=== PATIENT | female | born 1950 | race Caucasian/White ===

== ENCOUNTER 2016-12-24 19:21 | Emergency (ER) | payer OTHER ==
[2016-12-24 19:27] VITALS: BMI 25.4
--- NOTE | 2016-12-24 20:06 | DR.BITE ---
HPI - Time Seen Time seen: 19:44 - PCP Primary Care Physician: manjinder - Complaint/Symptoms Chief Complaint Doctor Comments: History as stated. Patient is taking augmentin 875mg this is day six. Patient presents for evaluation of dog bites on bilateral lower extremities. The dog is apprehended and caged by authorities. Chief Complaint:: dog bite to right lower leg and left lower leg happened on thursday. redness, edema. been to [facility] and has followed up with . on amoxicillin. - Source History Provided: Patient - Mode of Arrival Mode of Arrival: Ambulatory - Timing Onset of Chief Complaint: 12/19/16 - Context Immunization Status of Animal: Not Current PMH - PMH Past Medical History: Yes Past Medical History: Anxiety, Depression, Dyslipidemia, Hypertension, PUD Past Surgical History: Yes Surgical History: Hysterectomy - Family History History of Family Medical Conditions: Yes Family Medical History: Diabetes Mellitus, Cancer, Coronary Artery Disease, Hypertension - Social History Does patient currently use any type of tobacco product: No Have you used tobacco products in the last 12 months: No Type of Tobacco Use: None Does any household member use tobacco: No Alcohol Use: None Do you use any recreational Drugs:: No Lives With: Family Lives Where: Home - infectious screening Have you traveled outside the country in the last 6 months?: No Isolation: Standard ROS - Review of Systems Eyes: No Symptoms Reported ENTM: No Symptoms Reported Respiratoy: No Symptoms Reported Cardiovascular: No Symptoms Reported Gastrointestinal/Abdominal: No Symptoms Reported Genitourinary: No Symptoms Reported Neurological: No Symptoms Reported Musculoskeletal: No Symptoms Reported Integumentary: No Symptoms Reported, Other (Bilateral lower extremities distally with multiple healing dog bites) Hematologic/Lymphatic: No Symptoms Reported Endocrine: No Symptoms Reported Psychiatric: No Symptoms Reported All Other Systems: Reviewed and Negative PE - Vital Signs Vital Signs: Temp Pulse Resp BP BP Pulse Ox 12/24/16 20:14 98.2 F 12/24/16 19:22 87 16 146/75 100 03/21/16 15:39 157/69 157/69 - Constitutional Limitations: No Limitations General Appearance: Alert, In No Apparent Distress - Head Head Exam: Normal Inspection, Atraumatic - Eyes Eye exam: Normal Appearance, PERRL, EOMI - ENT ENT Exam: Normal Exam - Neck Neck Exam: Normal Inspection - Chest Chest Inspection: Normal Inspection - Respiratory Respiratory Exam: Normal Lung Sounds Bilat Respiratory Exam: Bilateral Clear to Auscultation - Cardiovascular Cardiovascular Exam: Regular Rate, Normal Rhythm - Abdominal Exam Abdominal Exam: Normal Inspection, Normal Bowel Sounds Abdominal Tenderness: negative: RUQ, RLQ, LUQ, LLQ, Epigastrium, Suprapubic, Diffuse, Mild, Moderate, Severe, Other - Back Back Exam: Normal Inspection, Full ROM - Neurologic Neurological Exam: Alert, Oriented X3, CN II-XII Intact Cranial Nerve Exam: EOM Function (II, III, IV, ): Normal Cerebellar Function: Normal Gait - Psychiatric Psychiatric Exam: Normal Affect, Normal Mood - Skin Skin Exam: Other (multiple dog bites on bilateral lower extremities, not warm to tough healing, minimal ecchymosis ) ROR - Labs Reviewed Result Diagrams: 12/24/16 20:20 Laboratory: WBC 8.6 X10^3/uL (3.6-10.0) 12/24/16 20:20 RBC 3.60 X10^6/uL (3.5-5.4) 12/24/16 20:20 Hgb 11.3 g/dL (12.0-16.0) L 12/24/16 20:20 Hct 32.7 % (36.0-47.0) L 12/24/16 20:20 MCV 90.6 fL (80.0-100.0) 12/24/16 20:20 MCH 31.4 pg (27.0-34.0) 12/24/16 20:20 MCHC 34.6 g/dL (33.0-35.0) 12/24/16 20:20 RDW 12.7 % (11.6-16.5) 12/24/16 20:20 Plt Count 231 X10^3/uL (150.0-450.0) 12/24/16 20:20 MPV 9.0 fL (7.4-11.0) 12/24/16 20:20 Neut % 60.7 % (42.0-75.0) 12/24/16 20:20 Lymph % 26.6 % (21.0-51.0) 12/24/16 20:20 [place] % 8.7 % (0.0-13.0) 12/24/16 20:20 Eos % 3.4 % (0.9-2.9) H 12/24/16 20:20 Baso % 0.6 % (0.2-1.0) 12/24/16 20:20 Neut # 5.2 x10^3/uL (2.2-4.8) H 12/24/16 20:20 Lymph # 2.3 X10^3/uL (1.3-2.9) 12/24/16 20:20 [place] # 0.7 x10^3/uL (0.3-0.8) 12/24/16 20:20 Eos # 0.3 x10^3/uL (0.0-0.2) H 12/24/16 20:20 Baso # 0.1 X10^3/uL (0.0-0.1) 12/24/16 20:20 Absolute Nucleated RBC 0.0 /100WBC 12/24/16 20:20 - Diagnosis Discharge Problem: Dog bite of multiple sites of lower extremity Qualifiers: Encounter type: initial encounter Laterality: right Qualified Code(s): S81.851A - Open bite, right lower leg, initial encounter; W54.0XXA - Bitten by dog, initial encounter; W54.0XXA - Bitten by dog, initial encounter - Discharge Plan Condition: Stable - Follow ups/Referrals Follow ups/Referrals: NFD,None [Primary Care Provider] - 3 days - Instructions
[2016-12-24 20:28] LABS: BASOPHILS # (AUTO) 0.1 X10^3/uL (0.0-0.1); BASOPHILS % (AUTO) 0.6 % (0.2-1.0); EOSINOPHILS # (AUTO) 0.3 x10^3/uL (0.0-0.2); EOSINOPHILS % (AUTO) 3.4 % (0.9-2.9); HEMATOCRIT 32.7 % (36.0-47.0); HEMOGLOBIN 11.3 g/dL (12.0-16.0); LYMPHOCYTES # (AUTO) 2.3 X10^3/uL (1.3-2.9); LYMPHOCYTES % (AUTO) 26.6 % (21.0-51.0); MEAN CORPUSCULAR HEMOGLOBIN 31.4 pg (27.0-34.0); MEAN CORPUSCULAR HGB CONC 34.6 g/dL (33.0-35.0); MEAN CORPUSCULAR VOLUME 90.6 fL (80.0-100.0); MONOCYTES # (AUTO) 0.7 x10^3/uL (0.3-0.8); MONOCYTES % (AUTO) 8.7 % (0.0-13.0); NEUTROPHILS # (AUTO) 5.2 x10^3/uL (2.2-4.8); NEUTROPHILS % (AUTO) 60.7 % (42.0-75.0); PLATELET COUNT 231 X10^3/uL (150.0-450.0); RED CELL DISTRIBUTION WIDTH 12.7 % (11.6-16.5); WHITE BLOOD COUNT 8.6 X10^3/uL (3.6-10.0)
[2016-12-24 21:35] VITALS: BP 144/71
== END 2016-12-24 21:30 | disposition home or self-care (01) ==
LOC: ER 19:34
DX: S81.851A Open bite, right lower leg, initial encounter (principal); W54.0XXA Bitten by dog, initial encounter
CPT/HCPCS: 36415; 85025; 86140; 99282

== ENCOUNTER 2018-06-08 15:53 | Inpatient (IN) ==
[2018-06-08 15:59] VITALS: BMI 24.6
[2018-06-08 16:31] LABS: BASOPHILS % (AUTO) 0.1 % (0.2-1.0); EOSINOPHILS # (AUTO) 0.1 x10^3/uL (0.0-0.2); EOSINOPHILS % (AUTO) 0.5 % (0.9-2.9); HEMATOCRIT 21.1 % (36.0-47.0); HEMOGLOBIN 7.2 g/dL (12.0-16.0); LYMPHOCYTES # (AUTO) 4.6 X10^3/uL (1.3-2.9); LYMPHOCYTES % (AUTO) 31.1 % (21.0-51.0); MEAN CORPUSCULAR HEMOGLOBIN 33.5 pg (27.0-34.0); MEAN CORPUSCULAR HGB CONC 34.1 g/dL (33.0-35.0); MEAN CORPUSCULAR VOLUME 98.1 fL (80.0-100.0); MEAN PLATELET VOLUME 8.2 fL (7.4-11.0); MONOCYTES % (AUTO) 6.6 % (0.0-13.0); NEUTROPHILS % (AUTO) 61.7 % (42.0-75.0); PLATELET COUNT 374 X10^3/uL (150.0-450.0); RED BLOOD COUNT 2.16 X10^6/uL (3.5-5.4); RED CELL DISTRIBUTION WIDTH 17.1 % (11.6-16.5); WHITE BLOOD COUNT 14.6 X10^3/uL (3.6-10.0)
[2018-06-08 16:38] LABS: PLATELET MORPHOLOGY COMMENT NORMAL (NORMAL)
[2018-06-08 16:40] LABS: ANISOCYTOSIS SLIGHT
[2018-06-08 16:43] LABS: SALICYLATE < 2.8 mg/dL (2.8-20)
[2018-06-08 16:45] LABS: ALANINE AMINOTRANSFERASE 19 Units/L (12-78); ALBUMIN 3.3 g/dL (3.4-5.0); ALKALINE PHOSPHATASE 59 Units/L (46-116); ASPARTATE AMINO TRANSFERASE 11 Units/L (15-37); BLOOD ALCOHOL < 3 mg/dL (0-19.9); BLOOD UREA NITROGEN 25 mg/dL (7-18); CALCIUM 8.6 mg/dL (8.5-10.1); CARBON DIOXIDE 27.8 mmol/L (21-32); CHLORIDE 105 mmol/L (98-107); COR CA(FOR HYPOALB) 9.2 mg/dL (8.5-10.1); COR NA(FOR HYPERGLY) 143 mmol/L (136-145); CREATININE 1.44 mg/dL (0.55-1.02); SODIUM 142 mmol/L (136-145); TOTAL PROTEIN 6.6 g/dL (6.4-8.2); eGFR NON BLACK RACES 38 (>60)
--- NOTE | 2018-06-08 16:51 | DR.GENAD ---
HPI Time Seen Time Seen by Provider: 06/08/18 16:49 PCP Primary Care Physician: MAGDALENE HPI Comment HPI Comment: 68 YR OLD WHITE FEMALE IN ED FOR MEDICAL CLEARANCE. PATIENT IS DEPRESS AND DAUGHTER THINK IS GETTING WORSE. DENIES SUICIDAL OR HOMICIDAL ROSA ATION. Complaint/Symptoms Chief Complaint Doctors Comments: MEDICAL CLEARANCE. Chief Complaint:: PATIENT STATED THAT SHE HAS BEEN REALLY SICK AND NOT GETTING ANY BETTER AND NEEDS TO BE [facility] THE [facility] [place]. PATIENT NEEDS MEDICAL CLEARNACE. Nurses notes reviewed Nurses Notes Review: Yes Source History Provided: Patient Mode of Arrival Mode of Arrival: Ambulatory Timing Onset of Chief Complaint: 06/07/18 Came on: Gradually Duration Duration: Constant Duration: Weeks Severity Severity: Moderate Other History Other History: DEPRESSION PMH PMH Past Medical History: Yes Past Medical History: Anxiety, Depression, Dyslipidemia, Hypertension and PUD Past Surgical History: Yes Surgical History: Hysterectomy Family History History of Family Medical Conditions: Yes Family Medical History: Diabetes Mellitus, Cancer, Coronary Artery Disease and Hypertension Social History Does patient currently use any type of tobacco product: No Have you used tobacco products in the last 12 months: No Type of Tobacco Use: None Does any household member use tobacco: No Alcohol Use: None Do you use any recreational Drugs:: No Lives With: Alone Lives Where: Home infectious screening In the last 2 months have you had wt loss of >10#?: NO Have you had fever, night sweats or hemotysis?: No Have you traveled outside the country in the last 6 months?: No Isolation: Standard ROS Review of Systems Constitutional: No Symptoms Reported Eyes: No Symptoms Reported ENTM: No Symptoms Reported Respiratoy: No Symptoms Reported Cardiovascular: No Symptoms Reported Gastrointestinal/Abdominal: No Symptoms Reported Genitourinary: No Symptoms Reported Neurological: No Symptoms Reported Musculoskeletal: No Symptoms Reported Integumentary: No Symptoms Reported Hematologic/Lymphatic: No Symptoms Reported Endocrine: No Symptoms Reported Psychiatric: No Symptoms Reported and Depression All Other Systems: Reviewed and Negative PE Vital Signs Vitals: Temperature 98.4 F Pulse Rate [Right Brachial] 88 Pulse Rate 106 Respiratory Rate 20 Blood Pressure [Right Arm] 138/67 Blood Pressure [Left Arm] 157/69 Blood Pressure 129/58 O2 Sat by Pulse Oximetry 98 General Limitations: No Limitations General Appearance: Alert and In No Apparent Distress Head Head Exam: Normal Inspection Eyes Eye exam: Normal Appearance ENT ENT Exam: Normal Exam External Ear Exam: Normal External Inspection TM/Canal Exam: Bilateral: Normal Nose Exam: Normal Nose Exam Mouth Exam: Normal Inspection Throat Exam: Normal Inspection Neck Neck Exam: Normal Inspection Chest Chest Inspection: Normal Inspection Respiratory Respiratory Exam: Normal Lung Sounds Bilat Respiratory Exam: Bilateral: Clear to Auscultation Cardiovascular Cardiovascular Exam: Regular Rate and Normal Rhythm Abdominal Exam Abdominal Exam: Normal Inspection, Normal Bowel Sounds and Soft Extremities Extremities Exam: Normal Inspection Back Back Exam: Normal Inspection Neurologic Neurological Exam: Alert, Oriented X3 and CN II-XII Intact; negative Motor Sensory Deficit Psychiatric Psychiatric Exam: Normal Affect and Normal Mood Skin Skin Exam: Warm, Dry, Intact and Normal Color MDM Additional Information Additional Information Obtained From: Family and PCP Differential Diagnosis Differential Diagnosis: DEPRESSION. COURSE Treatment Treatment: SEE ORDERS. Consultation Consultation Comments: PATIENT IS MEDICALY CLEAR. Education/Counseling Education/Counseling: Patient and Family Educated On: Diagnosis and Needs for Follow Up ROR Labs Reviewed Laboratory Results Reviewed?: Yes Result Diagrams: 06/09/18 05:41 06/09/18 05:41 Laboratory: WBC 12.0 X10^3/uL (3.6-10.0) H 06/09/18 05:41 RBC 2.09 X10^6/uL (3.5-5.4) L 06/09/18 05:41 Hgb 6.9 g/dL (12.0-16.0) L* 06/09/18 05:41 Hct 21.0 % (36.0-47.0) L 06/09/18 05:41 MCV 100.2 fL (80.0-100.0) H 06/09/18 05:41 MCH 32.9 pg (27.0-34.0) 06/09/18 05:41 MCHC 32.8 g/dL (33.0-35.0) L 06/09/18 05:41 RDW 16.3 % (11.6-16.5) 06/09/18 05:41 Plt Count 334 X10^3/uL (150.0-450.0) 06/09/18 05:41 Plt Count Comment Adequate (ADEQUATE) 06/08/18 16:22 MPV 8.9 fL (7.4-11.0) 06/09/18 05:41 Neut % (Auto) 68.3 % (42.0-75.0) 06/09/18 05:41 Lymph % (Auto) 26.6 % (21.0-51.0) 06/09/18 05:41 [place] % (Auto) 5.0 % (0.0-13.0) 06/09/18 05:41 Eos % (Auto) 0.0 % (0.9-2.9) L 06/09/18 05:41 Baso % (Auto) 0.1 % (0.2-1.0) L 06/09/18 05:41 Neut # (Auto) 8.2 x10^3/uL (2.2-4.8) H 06/09/18 05:41 Lymph # (Auto) 3.2 X10^3/uL (1.3-2.9) H 06/09/18 05:41 [place] # (Auto) 0.6 x10^3/uL (0.3-0.8) 06/09/18 05:41 Eos # (Auto) 0.0 x10^3/uL (0.0-0.2) 06/09/18 05:41 Baso # (Auto) 0.0 X10^3/uL (0.0-0.1) 06/09/18 05:41 Absolute Nucleated RBC 0.0 /100WBC 06/09/18 05:41 Plt Morphology Comment Normal (NORMAL) 06/08/18 16:22 RBC Morphology Abnormal (NORMAL) A 06/08/18 16:22 Anisocytosis Slight A 06/08/18 16:22 Sodium 139 mmol/L (136-145) 06/09/18 05:41 Corrected Sodium 140 mmol/L (136-145) 06/09/18 05:41 Potassium 4.4 mmol/L (3.5-5.1) 06/09/18 05:41 Chloride 105 mmol/L (98-107) 06/09/18 05:41 Carbon Dioxide 24.0 mmol/L (21-32) 06/09/18 05:41 BUN 23 mg/dL (7-18) H 06/09/18 05:41 Creatinine 1.10 mg/dL (0.55-1.02) H 06/09/18 05:41 Est GFR (MDRD) Af Amer > 60 (>60) 06/09/18 05:41 Est GFR (MDRD) Non-Af 52 (>60) L 06/09/18 05:41 Glucose 131 mg/dL (65-99) H 06/09/18 05:41 Calcium 8.9 mg/dL (8.5-10.1) 06/09/18 05:41 Corrected Calcium 9.5 mg/dL (8.5-10.1) 06/09/18 05:41 Iron 26 ug/dL (50-175) L 06/08/18 16:22 Transferrin 258 mg/dL (202-364) 06/08/18 16:22 Ferritin 77 ng/mL (8-252) 06/08/18 16:22 Total Bilirubin 0.20 mg/dL (0.2-1.0) 06/09/18 05:41 AST 11 Units/L (15-37) L 06/09/18 05:41 ALT 19 Units/L (12-78) 06/09/18 05:41 Alkaline Phosphatase 54 Units/L (46-116) 06/09/18 05:41 Total Protein 6.5 g/dL (6.4-8.2) 06/09/18 05:41 Albumin 3.3 g/dL (3.4-5.0) L 06/09/18 05:41 Globulin 3.2 g/dL (2.5-4.5) 06/09/18 05:41 Albumin/Globulin Ratio 1.0 Ratio (1.1-2.1) L 06/09/18 05:41 Vitamin B12 349 pg/mL (193-986) 06/08/18 16:22 Folate 12.1 ng/mL (>8.6) 06/08/18 16:22 Specimen Type Clean catch urine 06/08/18 16:10 Urine Color Yellow (YELLOW) 06/08/18 16:10 Urine Appearance Clear (CLEAR) 06/08/18 16:10 Urine pH 5.0 (5.0 - 8.0) 06/08/18 16:10 Ur Specific [place] 1.010 (1.000-1.030) 06/08/18 16:10 Urine Protein 1+ (NEGATIVE) 06/08/18 16:10 Urine Glucose (UA) Negative (NEGATIVE) 06/08/18 16:10 Urine Ketones Negative (NEGATIVE) 06/08/18 16:10 Urine Occult Blood Negative (NEGATIVE) 06/08/18 16:10 Urine Nitrite Negative (NEGATIVE) 06/08/18 16:10 Urine Bilirubin Negative (NEGATIVE) 06/08/18 16:10 Urine Urobilinogen Normal (NORMAL) 06/08/18 16:10 Ur Leukocyte Esterase 1+ (NEGATIVE) 06/08/18 16:10 Urine RBC 0-2 /HPF (NONE SEEN) 06/08/18 16:10 Urine WBC 0-2 /HPF (NONE SEEN) 06/08/18 16:10 Ur Squamous Epith Cells Few /HPF (NEGATIVE) 06/08/18 16:10 Urine Bacteria Trace /HPF (NEGATIVE) 06/08/18 16:10 Ur Culture Indicated? No/not indicated 06/08/18 16:10 Salicylates < 2.8 mg/dL (2.8-20) L 06/08/18 16:22 Urine Opiates Screen Negative (NEG=<300) 06/08/18 16:10 Urine Methadone Screen Negative (NEG=<300) 06/08/18 16:10 Acetaminophen 0.0 ug/mL (10-30) L 06/08/18 16:22 Ur Barbiturates Screen Negative (NEG=<200) 06/08/18 16:10 Ur Phencyclidine Scrn Negative (NEG=<25) 06/08/18 16:10 Ur Amphetamines Screen Negative (NEG=<1000) 06/08/18 16:10 U Benzodiazepines Scrn Positive (NEG=<200) A 06/08/18 16:10 Urine Cocaine Screen Negative (NEG=<300) 06/08/18 16:10 U Marijuana (THC) Screen Negative (NEG=<50) 06/08/18 16:10 Ethyl Alcohol mg/dL < 3 mg/dL (0-19.9) 06/08/18 16:22 EKG Rate: 103 [place]: Normal Rhythm: ST Block: None Hypertrophy: LVH ST: Nonsp Diagnosis Discharge Problem: Anemia Qualifiers: Anemia type: unspecified type Qualified Code(s): D64.9 - Anemia, unspecified Depression Qualifiers: Depression Type: unspecified Qualified Code(s): F32.9 - Major depressive disord er, single episode, unspecified Instructions Instructions: Major Depressive Disorder, Adult
[2018-06-08 17:10] LABS: BILIRUBIN,URINE NEGATIVE (NEGATIVE); BLOOD/HEMOGLOBIN,URINE NEGATIVE (NEGATIVE); GLUCOSE, URINE NEGATIVE (NEGATIVE); KETONES,URINE NEGATIVE (NEGATIVE); LEUKOCYTE ESTERASE ,URINE 1+ (NEGATIVE); NITRITES,URINE NEGATIVE (NEGATIVE); PROTEIN,URINE 1+ (NEGATIVE); UROBILINOGEN,URINE NORMAL (NORMAL)
[2018-06-08 17:12] LABS: APPEARANCE,URINE CLEAR (CLEAR); COLOR,URINE YELLOW (YELLOW)
[2018-06-08 17:21] LABS: BACTERIA,URINE TRACE /HPF (NEGATIVE); RBC,URINE 0-2 /HPF (NONE SEEN); SQUAMOUS EPITHELIAL CELL,UR FEW /HPF (NEGATIVE)
[2018-06-08] MEDS: XANAX PO PRN (22:30)
[2018-06-09 06:55] LABS: ALANINE AMINOTRANSFERASE 19 Units/L (12-78); ALBUMIN 3.3 g/dL (3.4-5.0); ALKALINE PHOSPHATASE 54 Units/L (46-116); ASPARTATE AMINO TRANSFERASE 11 Units/L (15-37); BLOOD UREA NITROGEN 23 mg/dL (7-18); CALCIUM 8.9 mg/dL (8.5-10.1); CHLORIDE 105 mmol/L (98-107); COR CA(FOR HYPOALB) 9.5 mg/dL (8.5-10.1); COR NA(FOR HYPERGLY) 140 mmol/L (136-145); SODIUM 139 mmol/L (136-145); TOTAL PROTEIN 6.5 g/dL (6.4-8.2); eGFR NON BLACK RACES 52 (>60)
[2018-06-09 07:03] LABS: BASOPHILS % (AUTO) 0.1 % (0.2-1.0); LYMPHOCYTES # (AUTO) 3.2 X10^3/uL (1.3-2.9); LYMPHOCYTES % (AUTO) 26.6 % (21.0-51.0); MEAN CORPUSCULAR HEMOGLOBIN 32.9 pg (27.0-34.0); MEAN CORPUSCULAR HGB CONC 32.8 g/dL (33.0-35.0); MEAN CORPUSCULAR VOLUME 100.2 fL (80.0-100.0); MEAN PLATELET VOLUME 8.9 fL (7.4-11.0); MONOCYTES # (AUTO) 0.6 x10^3/uL (0.3-0.8); NEUTROPHILS # (AUTO) 8.2 x10^3/uL (2.2-4.8); NEUTROPHILS % (AUTO) 68.3 % (42.0-75.0); PLATELET COUNT 334 X10^3/uL (150.0-450.0); RED BLOOD COUNT 2.09 X10^6/uL (3.5-5.4); RED CELL DISTRIBUTION WIDTH 16.3 % (11.6-16.5)
[2018-06-09 07:10] LABS: HEMOGLOBIN 6.9 g/dL (12.0-16.0)
[2018-06-09] MEDS: XANAX PO PRN ×2 (08:50→21:00)
[2018-06-09] MEDS ORDERED: ROBITUSSIN DM PO PRN (12:01)
--- NOTE | 2018-06-09 12:35 | DR.H&P ---
H&P - History & Physical for Day of: H&P Date: 06/08/18 - Chief Complaint Chief Complaint: DEPRESSION, WEAKNESS, FATIGUE - History of Present Illness History of Present Illness: IS A 68 YEAR OLD PATIENT OF OURS WHO PRESENTED TO THE ER SEEKING MEDICAL CLEARANCE FOR PLACEMENT AT A BEHAVIORAL UNIT DUE TO DEPRESSION. SHE DENIES SUICIDAL OR HOMICIDAL IDEATION. SHE DOES REPORT WEAKNESS AND FATIGUE. ON ARRIVAL, VITALS WERE 97.8-81-18-98%-154/72. LABS WERE OBTAINED. ABNORMAL LAB VALUES INCLUDE THE FOLLOWING: WBC 14.6, RBC 2.16, HGB 7.2, HCT 21.1, BUN 25, CREATININE 1.44, GLUCOSE 154, IRON 26, AST 11, ALBUMIN 3.3. TOXICOLOGY REPORTS POSITIVE FOR BENZODIAZEPINES. EKG REVEALED SINUS TACHYCARDIA WITH HR 103. WHEN QUESTIONED ABOUT HER BOWEL PATTERS, SHE DOES REPORT DARK, TARRY STOOL AND DARK COLORED EMESIS. SHE WAS ADMITTED FOR FURTHER EVAULATION AND TREATMENT OF ANEMIA AND DEPRESSION. WE WILL FOLLOW UP WITH AM LABS AND CONTINUE TO MONITOR. IF HEMOGLOBIN FALLS BELOW 7, WE PLAN TO TRANSFUSE PRBC. - Past Medical History Past Medical History: Hypertension, Dyslipidemia, Depression, Anxiety, PUD - Past Surgical History Surgical History: Hysterectomy - Family History Family Medical History: Diabetes Mellitus, Cancer, Coronary Artery Disease, Hypertension - Social History Does patient currently use any type of tobacco product: No Have you used tobacco products in the last 12 months: No Type of Tobacco Use: None Does any household member use tobacco: No Alcohol Use: None Drug Use: None - Medications Home Medications: doxycycline Allergy (Verified 12/24/16 19:29) CONTINUE taking the following medications amoxicillin-pot clavulanate 875 mg PO BID 06/09/18 [History] cefdinir 300 mg PO BID 06/09/18 [History] eszopiclone 2 mg PO HS 06/09/18 [History] fluticasone propionate 1 spray INTRANASAL BID 06/09/18 [History] gabapentin 2 cap PO QID 06/09/18 [History] meclizine 25 mg PO TID PRN 06/09/18 [History] meloxicam 15 mg PO DAILY 06/09/18 [History] ondansetron HCl 8 mg PO Q8H PRN 06/09/18 [History] prednisone 10 mg PO DIRECTED 06/09/18 [History] - Review of Systems Constitutional: Weakness, Malaise Eyes: No Symptoms Reported ENT: No Symptoms Reported Respiratory: Shortness of Breath Cardiovascular: No Symptoms Reported Gastrointestinal: No Symptoms Reported Genitourinary: No Symptoms Reported Musculoskeletal: No Symptoms Reported Skin: No Symptoms Reported Neurological: Weakness - Physical Exam Vital Signs: Temperature 97.8 F Pulse Rate [Right Brachial] 81 Pulse Rate 106 Respiratory Rate 18 Blood Pressure [Right Arm] 154/72 Blood Pressure [Left Arm] 157/69 Blood Pressure 129/58 O2 Sat by Pulse Oximetry 98 Oriented: Normal Eyes: Normal Ear: Normal Nose: Normal Throat: Normal Respiratory: Diminished Throughout Cardiovascular: Normal : Normal Auscultation: Bowel Sounds: Normal Palpation: Normal Tenderness: Normal Skin: Normal Musculoskeletal: Normal Psychiatric: Normal Mood Description: Calm Affect: Normal Speech Pattern: Clear - Assessment/Plan (1) Anemia Qualifiers: Anemia type: unspecified type Qualified Code(s): D64.9 - Anemia, unspecified Status: Acute Plan: MONITOR H&H, TRANSFUSE 2 UNITS PRBC IF HGB FALLS BELOW 7 (2) Depression Qualifiers: Depression Type: unspecified Qualified Code(s): F32.9 - Major depressive disorder, single episode, unspecified Status: Acute - Allergies Allergies/Adverse Reactions: Allergies Allergy/AdvReac Type Severity Reaction Status Date / Time doxycycline Allergy Verified 12/24/16 19:29
[2018-06-09] MEDS ORDERED: NS 500 ML IV 500 ML ONE (12:41)
[2018-06-09] MEDS: PROTONIX INJ 40 MG VIAL IVP SCH ×2 (12:44→20:59)
[2018-06-09] MEDS: PEPCID 20 MG IV PREMIX* 20 MG/50 ML BAG IV SCH ×2 (12:44→20:59)
[2018-06-09] MEDS: TYLENOL 325 MG TAB PO PRN (12:55)
--- NOTE | 2018-06-09 13:28 | RAD ---
HISTORY: Shortness of breath Study: Single view of the chest. Comparison: None. Findings: The cardiomediastinal silhouette is normal. No focal consolidations, pleural effusions or pneumothorax. Osseous structures demonstrate no acute abnormality. Bilateral hyper expansion with coarsening of interstitial markings. IMPRESSION: 1. No acute cardiopulmonary process. 2. Findings of COPD. Reported By:
--- NOTE | 2018-06-09 18:17 | PCM.PROG ---
Progress Note - Progress Note for Day of Date of Exam: 06/09/18 - Subjective Subjective: WAS ADMITTED FOR ANEMIA. TODAY, SHE IS ALERT AND ORIENTED, LYING IN BED ON MORNING ROUNDS. SHE CONTINUES WITH COMPLAINTS OF SEVERE WEAKNESS. SHE ALSO REPORTS BILATERAL LEG CRAMPING. HER VITALS THIS MORNING ARE 97.8-81-18-98%-154/72. LABS WERE OBTAINED. ABNORMAL LAB VALUES INCLUDE THE FOLLOWING: WBC 12.0, RBC 2.09, HGB 6.9, HCT 21.0, BUN 23, CREATININE 1.10, GLUCOSE 131, AST 11, ALBUMIN 3.3. URINE CULTURE PENDING. TODAY, WE WILL START PEPCID IV AND PROTONIX IV. WE WILL TRANSFUSE 2 UNITS OF PACKED RED BLOOD CELLS. WE ALSO PLAN TO OBTAIN STOOL STUDIES, A CHEST XRAY, AND A URINE CULTURE. WE WILL CONSULT . OTHERWISE, WE WILL FOLLOW UP WITH AM LABS AND CONTINUE TO MONITOR. - Past Medical Family Social History Past Med/Fam/Surg Hx: No changes since H&P Allergies: Allergies doxycycline Allergy (Verified 12/24/16 19:29) - Review of Systems ROS: No change since H&P - Vital Signs and I&O's Vital Signs: Temperature 98.8 F Pulse Rate [Right Brachial] 92 Pulse Rate 106 Respiratory Rate 18 Blood Pressure [Right Arm] 145/63 Blood Pressure [Left Arm] 157/69 Blood Pressure 129/58 O2 Sat by Pulse Oximetry 100 Intake and Output: Intake & Output 06/07/18 06/08/18 06/09/18 06/10/18 11:59 11:59 11:59 11:59 Intake Total 690 / 690 920 / 920 Balance 690 / 690 920 / 920 - Physical Exam Oriented: Normal Eyes: Normal Ear: Normal Nose: Normal Throat: Normal Respiratory: Generalized, Diminished Cardiovascular: Normal : Normal Auscultation: Bowel Sounds: Normal Tenderness: Normal Skin: Normal Musculoskeletal: Normal Psychiatric: Normal Mood Description: Calm Affect: Normal Speech Pattern: Clear - Laboratory and Diagnostics Result Diagrams: 06/09/18 05:41 06/09/18 05:41 Labs: Laboratory WBC 12.0 X10^3/uL (3.6-10.0) H 06/09/18 05:41 RBC 2.09 X10^6/uL (3.5-5.4) L 06/09/18 05:41 Hgb 6.9 g/dL (12.0-16.0) L* 06/09/18 05:41 Hct 21.0 % (36.0-47.0) L 06/09/18 05:41 MCV 100.2 fL (80.0-100.0) H 06/09/18 05:41 MCH 32.9 pg (27.0-34.0) 06/09/18 05:41 MCHC 32.8 g/dL (33.0-35.0) L 06/09/18 05:41 RDW 16.3 % (11.6-16.5) 06/09/18 05:41 Plt Count 334 X10^3/uL (150.0-450.0) 06/09/18 05:41 Plt Count Comment Adequate (ADEQUATE) 06/08/18 16:22 MPV 8.9 fL (7.4-11.0) 06/09/18 05:41 Neut % (Auto) 68.3 % (42.0-75.0) 06/09/18 05:41 Lymph % (Auto) 26.6 % (21.0-51.0) 06/09/18 05:41 [place] % (Auto) 5.0 % (0.0-13.0) 06/09/18 05:41 Eos % (Auto) 0.0 % (0.9-2.9) L 06/09/18 05:41 Baso % (Auto) 0.1 % (0.2-1.0) L 06/09/18 05:41 Neut # (Auto) 8.2 x10^3/uL (2.2-4.8) H 06/09/18 05:41 Lymph # (Auto) 3.2 X10^3/uL (1.3-2.9) H 06/09/18 05:41 [place] # (Auto) 0.6 x10^3/uL (0.3-0.8) 06/09/18 05:41 Eos # (Auto) 0.0 x10^3/uL (0.0-0.2) 06/09/18 05:41 Baso # (Auto) 0.0 X10^3/uL (0.0-0.1) 06/09/18 05:41 Absolute Nucleated RBC 0.0 /100WBC 06/09/18 05:41 Plt Morphology Comment Normal (NORMAL) 06/08/18 16:22 RBC Morphology Abnormal (NORMAL) A 06/08/18 16:22 Anisocytosis Slight A 06/08/18 16:22 Sodium 139 mmol/L (136-145) 06/09/18 05:41 Corrected Sodium 140 mmol/L (136-145) 06/09/18 05:41 Potassium 4.4 mmol/L (3.5-5.1) 06/09/18 05:41 Chloride 105 mmol/L (98-107) 06/09/18 05:41 Carbon Dioxide 24.0 mmol/L (21-32) 06/09/18 05:41 BUN 23 mg/dL (7-18) H 06/09/18 05:41 Creatinine 1.10 mg/dL (0.55-1.02) H 06/09/18 05:41 Est GFR (MDRD) Af Amer > 60 (>60) 06/09/18 05:41 Est GFR (MDRD) Non-Af 52 (>60) L 06/09/18 05:41 Glucose 131 mg/dL (65-99) H 06/09/18 05:41 Calcium 8.9 mg/dL (8.5-10.1) 06/09/18 05:41 Corrected Calcium 9.5 mg/dL (8.5-10.1) 06/09/18 05:41 Iron 26 ug/dL (50-175) L 06/08/18 16:22 Transferrin 258 mg/dL (202-364) 06/08/18 16:22 Ferritin 77 ng/mL (8-252) 06/08/18 16:22 Total Bilirubin 0.20 mg/dL (0.2-1.0) 06/09/18 05:41 AST 11 Units/L (15-37) L 06/09/18 05:41 ALT 19 Units/L (12-78) 06/09/18 05:41 Alkaline Phosphatase 54 Units/L (46-116) 06/09/18 05:41 Total Protein 6.5 g/dL (6.4-8.2) 06/09/18 05:41 Albumin 3.3 g/dL (3.4-5.0) L 06/09/18 05:41 Globulin 3.2 g/dL (2.5-4.5) 06/09/18 05:41 Albumin/Globulin Ratio 1.0 Ratio (1.1-2.1) L 06/09/18 05:41 Vitamin B12 349 pg/mL (193-986) 06/08/18 16:22 Folate 12.1 ng/mL (>8.6) 06/08/18 16:22 Specimen Type Clean catch urine 06/08/18 16:10 Urine Color Yellow (YELLOW) 06/08/18 16:10 Urine Appearance Clear (CLEAR) 06/08/18 16:10 Urine pH 5.0 (5.0 - 8.0) 06/08/18 16:10 Ur Specific [place] 1.010 (1.000-1.030) 06/08/18 16:10 Urine Protein 1+ (NEGATIVE) 06/08/18 16:10 Urine Glucose (UA) Negative (NEGATIVE) 06/08/18 16:10 Urine Ketones Negative (NEGATIVE) 06/08/18 16:10 Urine Occult Blood Negative (NEGATIVE) 06/08/18 16:10 Urine Nitrite Negative (NEGATIVE) 06/08/18 16:10 Urine Bilirubin Negative (NEGATIVE) 06/08/18 16:10 Urine Urobilinogen Normal (NORMAL) 06/08/18 16:10 Ur Leukocyte Esterase 1+ (NEGATIVE) 06/08/18 16:10 Urine RBC 0-2 /HPF (NONE SEEN) 06/08/18 16:10 Urine WBC 0-2 /HPF (NONE SEEN) 06/08/18 16:10 Ur Squamous Epith Cells Few /HPF (NEGATIVE) 06/08/18 16:10 Urine Bacteria Trace /HPF (NEGATIVE) 06/08/18 16:10 Ur Culture Indicated? No/not indicated 06/08/18 16:10 Salicylates < 2.8 mg/dL (2.8-20) L 06/08/18 16:22 Urine Opiates Screen Negative (NEG=<300) 06/08/18 16:10 Urine Methadone Screen Negative (NEG=<300) 06/08/18 16:10 Acetaminophen 0.0 ug/mL (10-30) L 06/08/18 16:22 Ur Barbiturates Screen Negative (NEG=<200) 06/08/18 16:10 Ur Phencyclidine Scrn Negative (NEG=<25) 06/08/18 16:10 Ur Amphetamines Screen Negative (NEG=<1000) 06/08/18 16:10 U Benzodiazepines Scrn Positive (NEG=<200) A 06/08/18 16:10 Urine Cocaine Screen Negative (NEG=<300) 06/08/18 16:10 U Marijuana (THC) Screen Negative (NEG=<50) 06/08/18 16:10 Ethyl Alcohol mg/dL < 3 mg/dL (0-19.9) 06/08/18 16:22 - Plan (1) Anemia Status: Acute Qualifiers: Anemia type: unspecified type Qualified Code(s): D64.9 - Anemia, unspecified Plan: TRANSFUSE 2 UNITS PRBC, PEPCID IV, PROTONIX IV, CONSULT GI (2) Depression Status: Acute Qualifiers: Depression Type: unspecified Qualified Code(s): F32.9 - Major depressive disorder, single episode, unspecified
[2018-06-09] MEDS ORDERED: ZOFRAN TAB 4 MG PO PRN (18:18)
[2018-06-09] MEDS ORDERED: ANTIVERT TAB 25 MG PO PRN (18:18)
[2018-06-09 19:45] LABS: HEMATOCRIT 20.9 % (36.0-47.0)
[2018-06-09] MEDS: FLONASE NASAL SPRAY ENOSTRIL SCH (21:00)
[2018-06-09] MEDS: ZESTRIL TAB 10 MG PO SCH (21:00)
[2018-06-09] MEDS: NEURONTIN CAP 100 MG PO SCH ×2 (21:00→21:02)
[2018-06-09] MEDS: RESTORIL CAP 15 MG PO PRN (21:00)
[2018-06-09] MEDS: CELEXA PO SCH (21:13)
[2018-06-09] MEDS: SINGULAIR TAB 10 MG PO SCH (21:13)
[2018-06-10 06:28] LABS: BASOPHILS % (AUTO) 0.3 % (0.2-1.0); EOSINOPHILS # (AUTO) 0.3 x10^3/uL (0.0-0.2); EOSINOPHILS % (AUTO) 2.6 % (0.9-2.9); LYMPHOCYTES % (AUTO) 35.6 % (21.0-51.0); MEAN CORPUSCULAR HEMOGLOBIN 34.8 pg (27.0-34.0); MEAN CORPUSCULAR HGB CONC 34.1 g/dL (33.0-35.0); MEAN CORPUSCULAR VOLUME 102.1 fL (80.0-100.0); MONOCYTES # (AUTO) 0.7 x10^3/uL (0.3-0.8); MONOCYTES % (AUTO) 6.4 % (0.0-13.0); NEUTROPHILS # (AUTO) 6.2 x10^3/uL (2.2-4.8); NEUTROPHILS % (AUTO) 55.1 % (42.0-75.0); PLATELET COUNT 292 X10^3/uL (150.0-450.0); RED BLOOD COUNT 1.84 X10^6/uL (3.5-5.4); WHITE BLOOD COUNT 11.3 X10^3/uL (3.6-10.0)
[2018-06-10 06:48] LABS: HEMATOCRIT 18.8 % (36.0-47.0); HEMOGLOBIN 6.4 g/dL (12.0-16.0)
[2018-06-10 07:04] LABS: ALANINE AMINOTRANSFERASE 16 Units/L (12-78); ALBUMIN 2.8 g/dL (3.4-5.0); ALKALINE PHOSPHATASE 46 Units/L (46-116); ASPARTATE AMINO TRANSFERASE 10 Units/L (15-37); BLOOD UREA NITROGEN 19 mg/dL (7-18); CALCIUM 8.3 mg/dL (8.5-10.1); CARBON DIOXIDE 25.8 mmol/L (21-32); CHLORIDE 107 mmol/L (98-107); COR CA(FOR HYPOALB) 9.3 mg/dL (8.5-10.1); CREATININE 1.09 mg/dL (0.55-1.02); SODIUM 141 mmol/L (136-145); TOTAL PROTEIN 5.5 g/dL (6.4-8.2); eGFR NON BLACK RACES 53 (>60)
[2018-06-10] MEDS: XANAX PO PRN ×2 (09:15→21:47)
[2018-06-10] MEDS: CELEXA PO SCH (09:15)
[2018-06-10] MEDS: ZESTRIL TAB 10 MG PO SCH ×2 (09:15→21:47)
[2018-06-10] MEDS: PEPCID 20 MG IV PREMIX* 20 MG/50 ML BAG IV SCH ×2 (09:16→21:44)
[2018-06-10] MEDS: NEURONTIN CAP 100 MG PO SCH ×3 (09:23→21:46)
[2018-06-10] MEDS: NS 1000 ML 1,000 ML IV SCH ×2 (09:23→23:10)
[2018-06-10] MEDS: FLONASE NASAL SPRAY ENOSTRIL SCH ×2 (09:24→21:48)
[2018-06-10] MEDS: SINGULAIR TAB 10 MG PO SCH (09:24)
[2018-06-10] MEDS: SYNTHROID 50 mcg TAB PO SCH (09:24)
[2018-06-10] MEDS: PROTONIX INJ 40 MG VIAL 80 MG in NS 100 ML IV 80 ML IV SCH ×2 (09:55→21:45)
[2018-06-10] MEDS ORDERED: DIPRIVAN VIAL 20 ML ONE (12:13)
[2018-06-10] MEDS ORDERED: LR 1000 ML IV 1,000 ML ONE (12:16)
[2018-06-10] MEDS ORDERED: STERILE WATER IRRIGATION ONE (12:44)
[2018-06-10] MEDS ORDERED: DIFLUCAN PO SCH (13:00)
[2018-06-10] MEDS: TYLENOL 325 MG TAB PO PRN (14:02)
[2018-06-10 17:33] LABS: HEMATOCRIT 20.1 % (36.0-47.0)
[2018-06-10 17:40] LABS: HEMOGLOBIN 6.9 g/dL (12.0-16.0)
[2018-06-10 18:37] LABS: STOOL FOR WBC NEGATIVE (NEGATIVE)
[2018-06-10 18:54] LABS: CRYPTOSPORIDIUM PARVUM ANTIGEN NEGATIVE (NEGATIVE); GIARDIA LAMBLIA ANTIGEN NEGATIVE (NEGATIVE)
[2018-06-10] MEDS ORDERED: PROTONIX TAB 40 MG PO SCH (21:00)
[2018-06-10] MEDS: RESTORIL CAP 15 MG PO PRN (21:47)
[2018-06-10] MEDS: DIFLUCAN PO SCH (21:47)
[2018-06-11] MEDS: NS 1000 ML 1,000 ML IV SCH (02:03)
[2018-06-11 06:12] LABS: BASOPHILS % (AUTO) 0.2 % (0.2-1.0); EOSINOPHILS # (AUTO) 0.4 x10^3/uL (0.0-0.2); EOSINOPHILS % (AUTO) 4.9 % (0.9-2.9); LYMPHOCYTES # (AUTO) 3.5 X10^3/uL (1.3-2.9); LYMPHOCYTES % (AUTO) 38.8 % (21.0-51.0); MEAN CORPUSCULAR HEMOGLOBIN 33.8 pg (27.0-34.0); MEAN CORPUSCULAR VOLUME 99.5 fL (80.0-100.0); MEAN PLATELET VOLUME 8.2 fL (7.4-11.0); MONOCYTES # (AUTO) 0.7 x10^3/uL (0.3-0.8); MONOCYTES % (AUTO) 7.6 % (0.0-13.0); NEUTROPHILS # (AUTO) 4.3 x10^3/uL (2.2-4.8); NEUTROPHILS % (AUTO) 48.5 % (42.0-75.0); PLATELET COUNT 305 X10^3/uL (150.0-450.0); RED BLOOD COUNT 1.97 X10^6/uL (3.5-5.4); RED CELL DISTRIBUTION WIDTH 16.3 % (11.6-16.5); WHITE BLOOD COUNT 8.9 X10^3/uL (3.6-10.0)
[2018-06-11] MEDS: SYNTHROID 50 mcg TAB PO SCH (06:22)
[2018-06-11 06:25] LABS: ALANINE AMINOTRANSFERASE 14 Units/L (12-78); ALBUMIN 2.6 g/dL (3.4-5.0); ALKALINE PHOSPHATASE 50 Units/L (46-116); ASPARTATE AMINO TRANSFERASE 8 Units/L (15-37); BLOOD UREA NITROGEN 16 mg/dL (7-18); CALCIUM 8.2 mg/dL (8.5-10.1); CARBON DIOXIDE 28.7 mmol/L (21-32); CHLORIDE 107 mmol/L (98-107); COR CA(FOR HYPOALB) 9.3 mg/dL (8.5-10.1); CREATININE 1.18 mg/dL (0.55-1.02); SODIUM 142 mmol/L (136-145); TOTAL PROTEIN 5.4 g/dL (6.4-8.2); eGFR NON BLACK RACES 48 (>60)
[2018-06-11 06:26] LABS: HEMOGLOBIN 6.6 g/dL (12.0-16.0)
[2018-06-11 06:30] LABS: HEMATOCRIT 19.6 % (36.0-47.0)
[2018-06-11] MEDS: PROTONIX INJ 40 MG VIAL 80 MG in NS 100 ML IV 80 ML IV SCH (08:55)
[2018-06-11] MEDS: PEPCID 20 MG IV PREMIX* 20 MG/50 ML BAG IV SCH ×2 (09:33→21:10)
[2018-06-11] MEDS: SINGULAIR TAB 10 MG PO SCH (09:34)
[2018-06-11] MEDS: NEURONTIN CAP 100 MG PO SCH ×5 (09:34→21:10)
[2018-06-11] MEDS: ZESTRIL TAB 10 MG PO SCH ×2 (09:34→21:10)
[2018-06-11] MEDS: CELEXA PO SCH (09:34)
[2018-06-11] MEDS: DIFLUCAN PO SCH ×2 (09:34→21:10)
[2018-06-11] MEDS: FLONASE NASAL SPRAY ENOSTRIL SCH ×2 (09:35→20:30)
--- NOTE | 2018-06-11 11:18 | PCM.PROG ---
Progress Note - Progress Note for Day of Date of Exam: 06/10/18 - Subjective Subjective: WAS ADMITTED FOR ANEMIA. TODAY, SHE IS ALERT AND ORIENTED, LYING IN BED ON MORNING ROUNDS. SHE CONTINUES WITH COMPLAINTS OF SEVERE WEAKNESS AND MILD, DIFFUSE ABDOMINAL PAIN. HER VITALS THIS MORNING ARE 98.0-82-20-96%-130/58. LABS WERE OBTAINED. ABNORMAL LAB VALUES INCLUDE THE [place]: WBC 11.3, RBC 1.84, HGB 6.4, HCT 18.8, BUN 19, CREATININE 1.09, CALCIUM 8.3, AST 10, TOTAL PROTEIN 5.5, ALBUMIN 2.8. URINE CULTURE PENDING. LAB REPORTED THAT SHE HAS ANTIBODIES IN HER BLOOD. PRBC PENDING ARRIVAL. WHEN BLOOD IS AVAILABLE, WE WILL TRANSFUSE 2 UNITS OF PACKED RED BLOOD CELLS. PLANS TO TAKE PATIENT DOWN TO THE OR FOR AN EGD TODAY. WE ARE IN AGREEMENT WITH PLAN. OTHERWISE, WE WILL FOLLOW UP WITH AM LABS AND CONTINUE TO MONITOR. - Past Medical Family Social History Past Med/Fam/Surg Hx: No changes since H&P Allergies: Allergies doxycycline Allergy (Verified 12/24/16 19:29) - Review of Systems ROS: No change since H&P - Vital Signs and I&O's Vital Signs: Temperature 97.6 F Pulse Rate [Right Brachial] 86 Pulse Rate 106 Respiratory Rate 18 Blood Pressure [Right Arm] 113/57 Blood Pressure [Left Arm] 139/63 Blood Pressure 129/58 O2 Sat by Pulse Oximetry 96 Intake and Output: Intake & Output 06/08/18 06/09/18 06/10/18 06/11/18 11:59 11:59 11:59 11:59 Intake Total 690 / 690 2240 / 2240 2295 / 2295 Balance 690 / 690 2240 / 2240 2295 / 2295 - Physical Exam Oriented: Normal Eyes: Normal Ear: Normal Nose: Normal Throat: Normal Respiratory: Generalized, Diminished Cardiovascular: Normal : Normal Auscultation: Bowel Sounds: Normal Tenderness: Normal Skin: Normal Musculoskeletal: Normal Psychiatric: Normal Mood Description: Calm Affect: Normal Speech Pattern: Clear, Appropriate - Laboratory and Diagnostics Result Diagrams: 06/11/18 05:38 06/11/18 05:38 Labs: 06/10/18 17:50 Stool Stool Culture - Preliminary 06/10/18 17:50 Stool - Final 06/09/18 17:40 Urine,Clean Catch Urine Culture - Final Laboratory WBC 8.9 X10^3/uL (3.6-10.0) 06/11/18 05:38 RBC 1.97 X10^6/uL (3.5-5.4) L 06/11/18 05:38 Hgb 6.6 g/dL (12.0-16.0) L* 06/11/18 05:38 Hct 19.6 % (36.0-47.0) L* 06/11/18 05:38 MCV 99.5 fL (80.0-100.0) 06/11/18 05:38 MCH 33.8 pg (27.0-34.0) 06/11/18 05:38 MCHC 34.0 g/dL (33.0-35.0) 06/11/18 05:38 RDW 16.3 % (11.6-16.5) 06/11/18 05:38 Plt Count 305 X10^3/uL (150.0-450.0) 06/11/18 05:38 Plt Count Comment Adequate (ADEQUATE) 06/08/18 16:22 MPV 8.2 fL (7.4-11.0) 06/11/18 05:38 Neut % (Auto) 48.5 % (42.0-75.0) 06/11/18 05:38 Lymph % (Auto) 38.8 % (21.0-51.0) 06/11/18 05:38 [place] % (Auto) 7.6 % (0.0-13.0) 06/11/18 05:38 Eos % (Auto) 4.9 % (0.9-2.9) H 06/11/18 05:38 Baso % (Auto) 0.2 % (0.2-1.0) 06/11/18 05:38 Neut # (Auto) 4.3 x10^3/uL (2.2-4.8) 06/11/18 05:38 Lymph # (Auto) 3.5 X10^3/uL (1.3-2.9) H 06/11/18 05:38 [place] # (Auto) 0.7 x10^3/uL (0.3-0.8) 06/11/18 05:38 Eos # (Auto) 0.4 x10^3/uL (0.0-0.2) H 06/11/18 05:38 Baso # (Auto) 0.0 X10^3/uL (0.0-0.1) 06/11/18 05:38 Absolute Nucleated RBC 0.0 /100WBC 06/11/18 05:38 Plt Morphology Comment Normal (NORMAL) 06/08/18 16:22 RBC Morphology Abnormal (NORMAL) A 06/08/18 16:22 Anisocytosis Slight A 06/08/18 16:22 Sodium 142 mmol/L (136-145) 06/11/18 05:38 Corrected Sodium TNP 06/11/18 05:38 Potassium 4.3 mmol/L (3.5-5.1) 06/11/18 05:38 Chloride 107 mmol/L (98-107) 06/11/18 05:38 Carbon Dioxide 28.7 mmol/L (21-32) 06/11/18 05:38 BUN 16 mg/dL (7-18) 06/11/18 05:38 Creatinine 1.18 mg/dL (0.55-1.02) H 06/11/18 05:38 Est GFR (MDRD) Af Amer 58 (>60) L 06/11/18 05:38 Est GFR (MDRD) Non-Af 48 (>60) L 06/11/18 05:38 Glucose 102 mg/dL (65-99) H 06/11/18 05:38 Calcium 8.2 mg/dL (8.5-10.1) L 06/11/18 05:38 Corrected Calcium 9.3 mg/dL (8.5-10.1) 06/11/18 05:38 Iron 26 ug/dL (50-175) L 06/08/18 16:22 Transferrin 258 mg/dL (202-364) 06/08/18 16:22 Ferritin 77 ng/mL (8-252) 06/08/18 16:22 Total Bilirubin 0.10 mg/dL (0.2-1.0) L 06/11/18 05:38 AST 8 Units/L (15-37) L 06/11/18 05:38 ALT 14 Units/L (12-78) 06/11/18 05:38 Alkaline Phosphatase 50 Units/L (46-116) 06/11/18 05:38 Total Protein 5.4 g/dL (6.4-8.2) L 06/11/18 05:38 Albumin 2.6 g/dL (3.4-5.0) L 06/11/18 05:38 Globulin 2.8 g/dL (2.5-4.5) 06/11/18 05:38 Albumin/Globulin Ratio 0.9 Ratio (1.1-2.1) L 06/11/18 05:38 Vitamin B12 349 pg/mL (193-986) 06/08/18 16:22 Folate 12.1 ng/mL (>8.6) 06/08/18 16:22 Specimen Type Clean catch urine 06/08/18 16:10 Urine Color Yellow (YELLOW) 06/08/18 16:10 Urine Appearance Clear (CLEAR) 06/08/18 16:10 Urine pH 5.0 (5.0 - 8.0) 06/08/18 16:10 Ur Specific [place] 1.010 (1.000-1.030) 06/08/18 16:10 Urine Protein 1+ (NEGATIVE) 06/08/18 16:10 Urine Glucose (UA) Negative (NEGATIVE) 06/08/18 16:10 Urine Ketones Negative (NEGATIVE) 06/08/18 16:10 Urine Occult Blood Negative (NEGATIVE) 06/08/18 16:10 Urine Nitrite Negative (NEGATIVE) 06/08/18 16:10 Urine Bilirubin Negative (NEGATIVE) 06/08/18 16:10 Urine Urobilinogen Normal (NORMAL) 06/08/18 16:10 Ur Leukocyte Esterase 1+ (NEGATIVE) 06/08/18 16:10 Urine RBC 0-2 /HPF (NONE SEEN) 06/08/18 16:10 Urine WBC 0-2 /HPF (NONE SEEN) 06/08/18 16:10 Ur Squamous Epith Cells Few /HPF (NEGATIVE) 06/08/18 16:10 Urine Bacteria Trace /HPF (NEGATIVE) 06/08/18 16:10 Ur Culture Indicated? No/not indicated 06/08/18 16:10 Stool Description 300g,brown,formed 06/10/18 17:50 Stl Occult Blood (IFOB) Negative (NEGATIVE) 06/10/18 17:50 Stool for White Cells Negative (NEGATIVE) 06/10/18 17:50 Stl C. diff Tox B Gene Negative (NEGATIVE) 06/10/18 17:50 Stl C. diff [id number]-BI Negative (NEGATIVE) 06/10/18 17:50 Salicylates < 2.8 mg/dL (2.8-20) L 06/08/18 16:22 Urine Opiates Screen Negative (NEG=<300) 06/08/18 16:10 Urine Methadone Screen Negative (NEG=<300) 06/08/18 16:10 Acetaminophen 0.0 ug/mL (10-30) L 06/08/18 16:22 Ur Barbiturates Screen Negative (NEG=<200) 06/08/18 16:10 Ur Phencyclidine Scrn Negative (NEG=<25) 06/08/18 16:10 Ur Amphetamines Screen Negative (NEG=<1000) 06/08/18 16:10 U Benzodiazepines Scrn Positive (NEG=<200) A 06/08/18 16:10 Urine Cocaine Screen Negative (NEG=<300) 06/08/18 16:10 U Marijuana (THC) Screen Negative (NEG=<50) 06/08/18 16:10 Ethyl Alcohol mg/dL < 3 mg/dL (0-19.9) 06/08/18 16:22 Cryptosporid parvum Ag Negative (NEGATIVE) 06/10/18 17:50 Giardia lamblia Ag Negative (NEGATIVE) 06/10/18 17:50 Tissue Pathology To follow 06/10/18 12:30 - Plan (1) Anemia Status: Acute Qualifiers: Anemia type: unspecified type Qualified Code(s): D64.9 - Anemia, unspecified Plan: TRANSFUSE 2 UNITS PRBC, PEPCID IV, PROTONIX IV, EGD TODAY (2) Depression Status: Acute Qualifiers: Depression Type: unspecified Qualified Code(s): F32.9 - Major depressive disorder, single episode, unspecified
[2018-06-11] MEDS ORDERED: NS 100 ML IV 100 ML ONE (12:49)
--- NOTE | 2018-06-11 14:06 | CT ---
CT OF THE ABDOMEN AND PELVIS WITH CONTRAST HISTORY: Epigastric pain and GI bleed Comparison: None Technique: Multiple axial images of the abdomen and pelvis were obtained from the lung bases to the pubic symphysis follow the administration of IV contrast as well as oral contrast. Dose reduction techniques including Automated Exposure Control (AEC) and adjustment of mA and kV were utlized. Findings: The heart is normal in size. There is no pericardial effusion. Lung bases are clear without focal consolidation, pleural effusion or pneumothorax. Liver and spleen are normal in size, enhancement characteristics and contour. No focal lesions. The portal vein is patent. No ductal dilitation. Gallbladder is present. No calcified gallstones or gallbladder wall thickening. There is a possible tiny stone and focus of gas in the distal common bile duct on series 8, image 23. The pancreas is unremarkable. Adrenal glands are normal. Kidneys enhance symmetrically without hydronephrosis or nephrolithiasis. No bowel obstruction or inflammation. No abnormal appearing mesenteric or retroperitoneal lymph nodes. No free fluid or fluid collections. The bladder is normal in appearance. Uterus appears to be absent. No free fluid or abnormal pelvic lymph nodes. No aggressive osseous lesions. IMPRESSION: 1. No definite source of patient's GI bleed is identified. 2. Possible tiny gallstone and focus of air in the distal common bile duct. Correlate with biliary labs. Reported By:
[2018-06-11] MEDS: TYLENOL 325 MG TAB PO PRN (16:39)
[2018-06-11 17:45] LABS: HEMATOCRIT 19.3 % (36.0-47.0); HEMOGLOBIN 6.6 g/dL (12.0-16.0)
[2018-06-11] MEDS: XANAX PO PRN (21:18)
[2018-06-11] MEDS: RESTORIL CAP 15 MG PO PRN (21:18)
--- NOTE | 2018-06-11 23:07 | PCM.PROG ---
Progress Note - Progress Note for Day of Date of Exam: 06/11/18 - Subjective Subjective: WAS ADMITTED FOR ANEMIA. TODAY, SHE IS ALERT AND ORIENTED, LYING IN BED ON MORNING ROUNDS. WE ARE AWAITING HER BLOOD DUE TO PRESENCE OF ANTIBODIES. SHE CONTINUES WITH COMPLAINTS OF SEVERE WEAKNESS AND MILD, DIFFUSE ABDOMINAL PAIN TODAY. HER VITALS THIS MORNING ARE 97.6-86-18-96%-139/63. LABS WERE OBTAINED. ABNORMAL LAB VALUES INCLUDE THE FOLLOWING: WBC RBC 1.97, HGB 6.6, HCT 19.6, CREATININE 1.18, GLUCOSE 102, CALCIUM 8.2, TOTAL BILI 0.10, AST 8, TOTAL PROTEIN 5.4, ALBUMIN 2.6. URINE CULTURE PENDING. WHEN BLOOD IS AVAILABLE, WE WILL TRANSFUSE 2 UNITS OF PACKED RED BLOOD CELLS. TOOK PATIENT TO THE OR FOR AN EGD YESTERDAY. IT REVEALED: Three antral gastric ulcers with clean white bases. A 6-cm hiatal hernia. Candid esophagitis. HE RECOMMENDS PROTONIX 40MG BID AND DIFLUCAN 100MG PO BID X 14 DAYS. WE WILL CONTINUE WITH CURRENT PLAN OF CARE TODAY. OTHERWISE, WE WILL FOLLOW UP WITH AM LABS AND CONTINUE TO MONITOR. - Past Medical Family Social History Past Med/Fam/Surg Hx: No changes since H&P Allergies: Allergies doxycycline Allergy (Verified 12/24/16 19:29) - Review of Systems ROS: No change since H&P - Vital Signs and I&O's Vital Signs: Temperature 97.7 F Pulse Rate [Right Brachial] 98 Pulse Rate 106 Respiratory Rate 18 Blood Pressure [Right Arm] 138/62 Blood Pressure [Left Arm] 132/60 Blood Pressure 129/58 O2 Sat by Pulse Oximetry 100 Intake and Output: Intake & Output 06/09/18 06/10/18 06/11/18 06/12/18 11:59 11:59 11:59 11:59 Intake Total 690 / 690 2240 / 2240 2295 / 2295 600 / 600 Balance 690 / 690 2240 / 2240 2295 / 2295 600 / 600 - Physical Exam Oriented: Normal Eyes: Normal Ear: Normal Nose: Normal Throat: Normal Respiratory: Generalized, Diminished Cardiovascular: Normal : Normal Auscultation: Bowel Sounds: Normal Palpation: Normal Tenderness: Normal Skin: Normal Musculoskeletal: Normal Psychiatric: Normal Mood Description: Calm Affect: Normal Speech Pattern: Clear, Appropriate - Laboratory and Diagnostics Result Diagrams: 06/11/18 17:11 06/11/18 05:38 Labs: 06/10/18 17:50 Stool Stool Culture - Preliminary 06/10/18 17:50 Stool - Final 06/09/18 17:40 Urine,Clean Catch Urine Culture - Final Laboratory WBC 8.9 X10^3/uL (3.6-10.0) 06/11/18 05:38 RBC 1.97 X10^6/uL (3.5-5.4) L 06/11/18 05:38 Hgb 6.6 g/dL (12.0-16.0) L* 06/11/18 17:11 Hct 19.3 % (36.0-47.0) L* 06/11/18 17:11 MCV 99.5 fL (80.0-100.0) 06/11/18 05:38 MCH 33.8 pg (27.0-34.0) 06/11/18 05:38 MCHC 34.0 g/dL (33.0-35.0) 06/11/18 05:38 RDW 16.3 % (11.6-16.5) 06/11/18 05:38 Plt Count 305 X10^3/uL (150.0-450.0) 06/11/18 05:38 Plt Count Comment Adequate (ADEQUATE) 06/08/18 16:22 MPV 8.2 fL (7.4-11.0) 06/11/18 05:38 Neut % (Auto) 48.5 % (42.0-75.0) 06/11/18 05:38 Lymph % (Auto) 38.8 % (21.0-51.0) 06/11/18 05:38 [place] % (Auto) 7.6 % (0.0-13.0) 06/11/18 05:38 Eos % (Auto) 4.9 % (0.9-2.9) H 06/11/18 05:38 Baso % (Auto) 0.2 % (0.2-1.0) 06/11/18 05:38 Neut # (Auto) 4.3 x10^3/uL (2.2-4.8) 06/11/18 05:38 Lymph # (Auto) 3.5 X10^3/uL (1.3-2.9) H 06/11/18 05:38 [place] # (Auto) 0.7 x10^3/uL (0.3-0.8) 06/11/18 05:38 Eos # (Auto) 0.4 x10^3/uL (0.0-0.2) H 06/11/18 05:38 Baso # (Auto) 0.0 X10^3/uL (0.0-0.1) 06/11/18 05:38 Absolute Nucleated RBC 0.0 /100WBC 06/11/18 05:38 Plt Morphology Comment Normal (NORMAL) 06/08/18 16:22 RBC Morphology Abnormal (NORMAL) A 06/08/18 16:22 Anisocytosis Slight A 06/08/18 16:22 Sodium 142 mmol/L (136-145) 06/11/18 05:38 Corrected Sodium TNP 06/11/18 05:38 Potassium 4.3 mmol/L (3.5-5.1) 06/11/18 05:38 Chloride 107 mmol/L (98-107) 06/11/18 05:38 Carbon Dioxide 28.7 mmol/L (21-32) 06/11/18 05:38 BUN 16 mg/dL (7-18) 06/11/18 05:38 Creatinine 1.18 mg/dL (0.55-1.02) H 06/11/18 05:38 Est GFR (MDRD) Af Amer 58 (>60) L 06/11/18 05:38 Est GFR (MDRD) Non-Af 48 (>60) L 06/11/18 05:38 Glucose 102 mg/dL (65-99) H 06/11/18 05:38 Calcium 8.2 mg/dL (8.5-10.1) L 06/11/18 05:38 Corrected Calcium 9.3 mg/dL (8.5-10.1) 06/11/18 05:38 Iron 26 ug/dL (50-175) L 06/08/18 16:22 Transferrin 258 mg/dL (202-364) 06/08/18 16:22 Ferritin 77 ng/mL (8-252) 06/08/18 16:22 Total Bilirubin 0.10 mg/dL (0.2-1.0) L 06/11/18 05:38 AST 8 Units/L (15-37) L 06/11/18 05:38 ALT 14 Units/L (12-78) 06/11/18 05:38 Alkaline Phosphatase 50 Units/L (46-116) 06/11/18 05:38 Total Protein 5.4 g/dL (6.4-8.2) L 06/11/18 05:38 Albumin 2.6 g/dL (3.4-5.0) L 06/11/18 05:38 Globulin 2.8 g/dL (2.5-4.5) 06/11/18 05:38 Albumin/Globulin Ratio 0.9 Ratio (1.1-2.1) L 06/11/18 05:38 Vitamin B12 349 pg/mL (193-986) 06/08/18 16:22 Folate 12.1 ng/mL (>8.6) 06/08/18 16:22 Specimen Type Clean catch urine 06/08/18 16:10 Urine Color Yellow (YELLOW) 06/08/18 16:10 Urine Appearance Clear (CLEAR) 06/08/18 16:10 Urine pH 5.0 (5.0 - 8.0) 06/08/18 16:10 Ur Specific [place] 1.010 (1.000-1.030) 06/08/18 16:10 Urine Protein 1+ (NEGATIVE) 06/08/18 16:10 Urine Glucose (UA) Negative (NEGATIVE) 06/08/18 16:10 Urine Ketones Negative (NEGATIVE) 06/08/18 16:10 Urine Occult Blood Negative (NEGATIVE) 06/08/18 16:10 Urine Nitrite Negative (NEGATIVE) 06/08/18 16:10 Urine Bilirubin Negative (NEGATIVE) 06/08/18 16:10 Urine Urobilinogen Normal (NORMAL) 06/08/18 16:10 Ur Leukocyte Esterase 1+ (NEGATIVE) 06/08/18 16:10 Urine RBC 0-2 /HPF (NONE SEEN) 06/08/18 16:10 Urine WBC 0-2 /HPF (NONE SEEN) 06/08/18 16:10 Ur Squamous Epith Cells Few /HPF (NEGATIVE) 06/08/18 16:10 Urine Bacteria Trace /HPF (NEGATIVE) 06/08/18 16:10 Ur Culture Indicated? No/not indicated 06/08/18 16:10 Stool Description 300g,brown,formed 06/10/18 17:50 Stl Occult Blood (IFOB) Negative (NEGATIVE) 06/10/18 17:50 Stool for White Cells Negative (NEGATIVE) 06/10/18 17:50 Stl C. diff Tox B Gene Negative (NEGATIVE) 06/10/18 17:50 Stl C. diff [id number]-BI Negative (NEGATIVE) 06/10/18 17:50 Salicylates < 2.8 mg/dL (2.8-20) L 06/08/18 16:22 Urine Opiates Screen Negative (NEG=<300) 06/08/18 16:10 Urine Methadone Screen Negative (NEG=<300) 06/08/18 16:10 Acetaminophen 0.0 ug/mL (10-30) L 06/08/18 16:22 Ur Barbiturates Screen Negative (NEG=<200) 06/08/18 16:10 Ur Phencyclidine Scrn Negative (NEG=<25) 06/08/18 16:10 Ur Amphetamines Screen Negative (NEG=<1000) 06/08/18 16:10 U Benzodiazepines Scrn Positive (NEG=<200) A 06/08/18 16:10 Urine Cocaine Screen Negative (NEG=<300) 06/08/18 16:10 U Marijuana (THC) Screen Negative (NEG=<50) 06/08/18 16:10 Ethyl Alcohol mg/dL < 3 mg/dL (0-19.9) 06/08/18 16:22 Cryptosporid parvum Ag Negative (NEGATIVE) 06/10/18 17:50 Giardia lamblia Ag Negative (NEGATIVE) 06/10/18 17:50 Tissue Pathology To follow 06/10/18 12:30 - Plan (1) Anemia Status: Acute Qualifiers: Anemia type: unspecified type Qualified Code(s): D64.9 - Anemia, unspecified Plan: TRANSFUSE 2 UNITS PRBC, PEPCID IV, PROTONIX IV, EGD TODAY (2) Oral candidiasis Status: Acute Plan: DIFLUCAN 100MG PO BID, CONTINUE TO MONITOR (3) Depression Status: Acute Qualifiers: Depression Type: unspecified Qualified Code(s): F32.9 - Major depressive disorder, single episode, unspecified
[2018-06-12] MEDS: PROTONIX INJ 40 MG VIAL 80 MG in NS 100 ML IV 80 ML IV SCH ×4 (00:46→20:59)
[2018-06-12 05:30] LABS: BASOPHILS % (AUTO) 0.2 % (0.2-1.0); EOSINOPHILS # (AUTO) 0.4 x10^3/uL (0.0-0.2); EOSINOPHILS % (AUTO) 4.7 % (0.9-2.9); LYMPHOCYTES # (AUTO) 3.1 X10^3/uL (1.3-2.9); LYMPHOCYTES % (AUTO) 37.2 % (21.0-51.0); MEAN CORPUSCULAR HEMOGLOBIN 34.5 pg (27.0-34.0); MEAN CORPUSCULAR HGB CONC 34.5 g/dL (33.0-35.0); MEAN CORPUSCULAR VOLUME 100.2 fL (80.0-100.0); MEAN PLATELET VOLUME 8.6 fL (7.4-11.0); MONOCYTES # (AUTO) 0.7 x10^3/uL (0.3-0.8); MONOCYTES % (AUTO) 8.6 % (0.0-13.0); NEUTROPHILS # (AUTO) 4.1 x10^3/uL (2.2-4.8); NEUTROPHILS % (AUTO) 49.3 % (42.0-75.0); PLATELET COUNT 316 X10^3/uL (150.0-450.0); RED BLOOD COUNT 1.98 X10^6/uL (3.5-5.4); RED CELL DISTRIBUTION WIDTH 16.1 % (11.6-16.5); WHITE BLOOD COUNT 8.4 X10^3/uL (3.6-10.0)
[2018-06-12 05:36] LABS: ALANINE AMINOTRANSFERASE 14 Units/L (12-78); ALBUMIN 2.8 g/dL (3.4-5.0); ALKALINE PHOSPHATASE 52 Units/L (46-116); ASPARTATE AMINO TRANSFERASE 8 Units/L (15-37); BLOOD UREA NITROGEN 18 mg/dL (7-18); CALCIUM 8.3 mg/dL (8.5-10.1); CARBON DIOXIDE 29.4 mmol/L (21-32); CHLORIDE 105 mmol/L (98-107); COR CA(FOR HYPOALB) 9.3 mg/dL (8.5-10.1); CREATININE 1.12 mg/dL (0.55-1.02); SODIUM 141 mmol/L (136-145); TOTAL PROTEIN 5.7 g/dL (6.4-8.2); eGFR NON BLACK RACES 51 (>60)
[2018-06-12 05:45] LABS: HEMATOCRIT 19.8 % (36.0-47.0); HEMOGLOBIN 6.8 g/dL (12.0-16.0)
[2018-06-12] MEDS: SYNTHROID 50 mcg TAB PO SCH (06:01)
[2018-06-12] MEDS: NS 1000 ML 1,000 ML IV SCH ×2 (07:43→17:13)
[2018-06-12] MEDS: DIFLUCAN PO SCH ×2 (08:57→21:00)
[2018-06-12] MEDS: CELEXA PO SCH (08:57)
[2018-06-12] MEDS: SINGULAIR TAB 10 MG PO SCH (08:57)
[2018-06-12] MEDS: PEPCID 20 MG IV PREMIX* 20 MG/50 ML BAG IV SCH ×2 (08:57→20:59)
[2018-06-12] MEDS: ZESTRIL TAB 10 MG PO SCH ×2 (08:57→21:00)
[2018-06-12] MEDS: NEURONTIN CAP 100 MG PO SCH ×4 (08:57→21:00)
[2018-06-12] MEDS: FLONASE NASAL SPRAY ENOSTRIL SCH ×2 (09:05→21:00)
[2018-06-12] MEDS ORDERED: NS 250 ML IV 250 ML ONE (10:04)
[2018-06-12] MEDS ORDERED: BENADRYL INJ 50 MG VIAL IVP ONE (10:04)
[2018-06-12] MEDS ORDERED: NS 250 ML IV 250 ML IV ONE (10:05)
[2018-06-12] MEDS: TYLENOL 325 MG TAB PO PRN (10:33)
[2018-06-12 19:07] LABS: HEMATOCRIT 28.9 % (36.0-47.0)
[2018-06-12 19:13] LABS: HEMOGLOBIN 9.9 g/dL (12.0-16.0)
[2018-06-12] MEDS: RESTORIL CAP 15 MG PO PRN (21:00)
[2018-06-12] MEDS: XANAX PO PRN (21:00)
[2018-06-13] MEDS: TYLENOL 325 MG TAB PO PRN (03:25)
[2018-06-13] MEDS: PROTONIX INJ 40 MG VIAL 80 MG in NS 100 ML IV 80 ML IV SCH ×2 (05:14→09:14)
[2018-06-13 05:37] LABS: BASOPHILS # (AUTO) 0.1 X10^3/uL (0.0-0.1); BASOPHILS % (AUTO) 0.6 % (0.2-1.0); EOSINOPHILS # (AUTO) 0.3 x10^3/uL (0.0-0.2); EOSINOPHILS % (AUTO) 3.2 % (0.9-2.9); HEMATOCRIT 28.6 % (36.0-47.0); HEMOGLOBIN 9.8 g/dL (12.0-16.0); LYMPHOCYTES # (AUTO) 3.6 X10^3/uL (1.3-2.9); LYMPHOCYTES % (AUTO) 37.2 % (21.0-51.0); MEAN CORPUSCULAR HEMOGLOBIN 32.6 pg (27.0-34.0); MEAN CORPUSCULAR HGB CONC 34.3 g/dL (33.0-35.0); MEAN CORPUSCULAR VOLUME 95.1 fL (80.0-100.0); MEAN PLATELET VOLUME 8.8 fL (7.4-11.0); MONOCYTES # (AUTO) 0.9 x10^3/uL (0.3-0.8); MONOCYTES % (AUTO) 9.3 % (0.0-13.0); NEUTROPHILS # (AUTO) 4.8 x10^3/uL (2.2-4.8); NEUTROPHILS % (AUTO) 49.7 % (42.0-75.0); PLATELET COUNT 322 X10^3/uL (150.0-450.0); RED BLOOD COUNT 3.01 X10^6/uL (3.5-5.4); RED CELL DISTRIBUTION WIDTH 16.2 % (11.6-16.5); WHITE BLOOD COUNT 9.7 X10^3/uL (3.6-10.0)
[2018-06-13 05:58] LABS: ALBUMIN 2.9 g/dL (3.4-5.0); CALCIUM 8.3 mg/dL (8.5-10.1); CARBON DIOXIDE 25.2 mmol/L (21-32); COR CA(FOR HYPOALB) 9.2 mg/dL (8.5-10.1); CREATININE 1.24 mg/dL (0.55-1.02); TOTAL PROTEIN 5.9 g/dL (6.4-8.2)
[2018-06-13] MEDS: SYNTHROID 50 mcg TAB PO SCH (06:03)
[2018-06-13] MEDS: CELEXA PO SCH (09:15)
[2018-06-13] MEDS: PEPCID 20 MG IV PREMIX* 20 MG/50 ML BAG IV SCH (09:15)
[2018-06-13] MEDS: FLONASE NASAL SPRAY ENOSTRIL SCH (09:16)
[2018-06-13] MEDS: DIFLUCAN PO SCH (09:16)
[2018-06-13] MEDS: NEURONTIN CAP 100 MG PO SCH (09:16)
[2018-06-13] MEDS: SINGULAIR TAB 10 MG PO SCH (09:16)
[2018-06-13] MEDS: ZESTRIL TAB 10 MG PO SCH (09:16)
[2018-06-13 10:45] VITALS: BP 156/84
--- NOTE | 2018-06-14 09:57 | PCM.PROG ---
Progress Note - Progress Note for Day of Date of Exam: 06/12/18 - Subjective Subjective: WAS ADMITTED FOR ANEMIA. TODAY, SHE IS ALERT AND ORIENTED, LYING IN BED ON MORNING ROUNDS. WE WERE AWAITING HER BLOOD DUE TO PRESENCE OF ANTIBODIES, HOWEVER, IT HAS ARRIVED AND IS READY FOR TRANSFUSION TODAY. SHE CONTINUES WITH COMPLAINTS OF SEVERE WEAKNESS AND MILD, DIFFUSE ABDOMI NAL PAIN TODAY. HER VITALS THIS MORNING ARE 97.8-78-18-99%-135/70. LABS WERE OBTAINED. ABNORMAL LAB VALUES INCLUDE THE FOLLOWING: RBC 1.98, HGB 6.8, HCT 19.8, CREATININE 1.12, GLUCOSE 104, CALCIUM 8.3, AST 8, TOTAL PROTEIN 5.7, ALBUMIN 2.8. URINE CULTURE PENDING. WHEN BLOOD IS AVAILABLE, WE WILL TRANSFUSE 2 UNITS OF PACKED RED BLOOD CELLS. SHE IS BEING TREATED FOR GASTRIC ULCERS AND ORAL CANDIDIASIS. WE WILL CONTINUE WITH CURRENT PLAN OF CARE TODAY AND TRANSFUSE BLOOD. OTHERWISE, WE WILL FOLLOW UP WITH AM LABS AND CONTINUE TO MONITOR. - Past Medical Family Social History Past Med/Fam/Surg Hx: No changes since H&P Allergies: Allergies doxycycline Allergy (Verified 12/24/16 19:29) - Review of Systems ROS: No change since H&P - Vital Signs and I&O's Vital Signs: Temperature 98.0 F Pulse Rate [Right Brachial] 78 Pulse Rate 106 Respiratory Rate 20 Blood Pressure [Right Arm] 156/84 Blood Pressure [Left Arm] 109/56 Blood Pressure 129/58 O2 Sat by Pulse Oximetry 97 Intake and Output: Intake & Output 06/11/18 06/12/18 06/13/18 06/14/18 11:59 11:59 11:59 11:59 Intake Total 2295 / 2295 1979 1480 / 1480 Balance 2295 / 2295 1979 1480 / 1480 - Physical Exam Oriented: Normal Eyes: Normal Ear: Normal Nose: Normal Throat: Normal Respiratory: Generalized, Diminished Cardiovascular: Normal : Normal Auscultation: Bowel Sounds: Normal Tenderness: Normal Skin: Normal Musculoskeletal: Normal Psychiatric: Normal Mood Description: Calm Affect: Normal Speech Pattern: Clear, Appropriate - Laboratory and Diagnostics Result Diagrams: 06/13/18 04:05 06/13/18 04:05 Labs: 06/10/18 17:50 Stool Stool Culture - Final 06/10/18 17:50 Stool - Final 06/09/18 17:40 Urine,Clean Catch Urine Culture - Final Laboratory WBC 9.7 X10^3/uL (3.6-10.0) 06/13/18 04:05 RBC 3.01 X10^6/uL (3.5-5.4) L 06/13/18 04:05 Hgb 9.8 g/dL (12.0-16.0) L 06/13/18 04:05 Hct 28.6 % (36.0-47.0) L 06/13/18 04:05 MCV 95.1 fL (80.0-100.0) 06/13/18 04:05 MCH 32.6 pg (27.0-34.0) 06/13/18 04:05 MCHC 34.3 g/dL (33.0-35.0) 06/13/18 04:05 RDW 16.2 % (11.6-16.5) 06/13/18 04:05 Plt Count 322 X10^3/uL (150.0-450.0) 06/13/18 04:05 Plt Count Comment Adequate (ADEQUATE) 06/08/18 16:22 MPV 8.8 fL (7.4-11.0) 06/13/18 04:05 Neut % (Auto) 49.7 % (42.0-75.0) 06/13/18 04:05 Lymph % (Auto) 37.2 % (21.0-51.0) 06/13/18 04:05 [place] % (Auto) 9.3 % (0.0-13.0) 06/13/18 04:05 Eos % (Auto) 3.2 % (0.9-2.9) H 06/13/18 04:05 Baso % (Auto) 0.6 % (0.2-1.0) 06/13/18 04:05 Neut # (Auto) 4.8 x10^3/uL (2.2-4.8) 06/13/18 04:05 Lymph # (Auto) 3.6 X10^3/uL (1.3-2.9) H 06/13/18 04:05 [place] # (Auto) 0.9 x10^3/uL (0.3-0.8) H 06/13/18 04:05 Eos # (Auto) 0.3 x10^3/uL (0.0-0.2) H 06/13/18 04:05 Baso # (Auto) 0.1 X10^3/uL (0.0-0.1) 06/13/18 04:05 Absolute Nucleated RBC 0.0 /100WBC 06/13/18 04:05 Plt Morphology Comment Normal (NORMAL) 06/08/18 16:22 RBC Morphology Abnormal (NORMAL) A 06/08/18 16:22 Anisocytosis Slight A 06/08/18 16:22 Sodium 141 mmol/L (136-145) 06/13/18 04:05 Corrected Sodium 141 mmol/L (136-145) 06/13/18 04:05 Potassium 4.0 mmol/L (3.5-5.1) 06/13/18 04:05 Chloride 106 mmol/L (98-107) 06/13/18 04:05 Carbon Dioxide 25.2 mmol/L (21-32) 06/13/18 04:05 BUN 16 mg/dL (7-18) 06/13/18 04:05 Creatinine 1.24 mg/dL (0.55-1.02) H 06/13/18 04:05 Est GFR (MDRD) Af Amer 55 (>60) L 06/13/18 04:05 Est GFR (MDRD) Non-Af 45 (>60) L 06/13/18 04:05 Glucose 119 mg/dL (65-99) H 06/13/18 04:05 POC Glucose (mg/dL) 121 mg/dL (65-99) H 06/12/18 12:13 Calcium 8.3 mg/dL (8.5-10.1) L 06/13/18 04:05 Corrected Calcium 9.2 mg/dL (8.5-10.1) 06/13/18 04:05 Iron 26 ug/dL (50-175) L 06/08/18 16:22 Transferrin 258 mg/dL (202-364) 06/08/18 16:22 Ferritin 77 ng/mL (8-252) 06/08/18 16:22 Total Bilirubin 0.20 mg/dL (0.2-1.0) 06/13/18 04:05 AST 10 Units/L (15-37) L 06/13/18 04:05 ALT 15 Units/L (12-78) 06/13/18 04:05 Alkaline Phosphatase 56 Units/L (46-116) 06/13/18 04:05 Total Protein 5.9 g/dL (6.4-8.2) L 06/13/18 04:05 Albumin 2.9 g/dL (3.4-5.0) L 06/13/18 04:05 Globulin 3.0 g/dL (2.5-4.5) 06/13/18 04:05 Albumin/Globulin Ratio 1.0 Ratio (1.1-2.1) L 06/13/18 04:05 Vitamin B12 349 pg/mL (193-986) 06/08/18 16:22 Folate 12.1 ng/mL (>8.6) 06/08/18 16:22 Specimen Type Clean catch urine 06/08/18 16:10 Urine Color Yellow (YELLOW) 06/08/18 16:10 Urine Appearance Clear (CLEAR) 06/08/18 16:10 Urine pH 5.0 (5.0 - 8.0) 06/08/18 16:10 Ur Specific [place] 1.010 (1.000-1.030) 06/08/18 16:10 Urine Protein 1+ (NEGATIVE) 06/08/18 16:10 Urine Glucose (UA) Negative (NEGATIVE) 06/08/18 16:10 Urine Ketones Negative (NEGATIVE) 06/08/18 16:10 Urine Occult Blood Negative (NEGATIVE) 06/08/18 16:10 Urine Nitrite Negative (NEGATIVE) 06/08/18 16:10 Urine Bilirubin Negative (NEGATIVE) 06/08/18 16:10 Urine Urobilinogen Normal (NORMAL) 06/08/18 16:10 Ur Leukocyte Esterase 1+ (NEGATIVE) 06/08/18 16:10 Urine RBC 0-2 /HPF (NONE SEEN) 06/08/18 16:10 Urine WBC 0-2 /HPF (NONE SEEN) 06/08/18 16:10 Ur Squamous Epith Cells Few /HPF (NEGATIVE) 06/08/18 16:10 Urine Bacteria Trace /HPF (NEGATIVE) 06/08/18 16:10 Ur Culture Indicated? No/not indicated 06/08/18 16:10 Stool Description 300g,brown,formed 06/10/18 17:50 Stl Occult Blood (IFOB) Negative (NEGATIVE) 06/10/18 17:50 Stool for White Cells Negative (NEGATIVE) 06/10/18 17:50 Stl C. diff Tox B Gene Negative (NEGATIVE) 06/10/18 17:50 Stl C. diff [id number] Negative (NEGATIVE) 06/10/18 17:50 Salicylates < 2.8 mg/dL (2.8-20) L 06/08/18 16:22 Urine Opiates Screen Negative (NEG=<300) 06/08/18 16:10 Urine Methadone Screen Negative (NEG=<300) 06/08/18 16:10 Acetaminophen 0.0 ug/mL (10-30) L 06/08/18 16:22 Ur Barbiturates Screen Negative (NEG=<200) 06/08/18 16:10 Ur Phencyclidine Scrn Negative (NEG=<25) 06/08/18 16:10 Ur Amphetamines Screen Negative (NEG=<1000) 06/08/18 16:10 U Benzodiazepines Scrn Positive (NEG=<200) A 06/08/18 16:10 Urine Cocaine Screen Negative (NEG=<300) 06/08/18 16:10 U Marijuana (THC) Screen Negative (NEG=<50) 06/08/18 16:10 Ethyl Alcohol mg/dL < 3 mg/dL (0-19.9) 06/08/18 16:22 Cryptosporid parvum Ag Negative (NEGATIVE) 06/10/18 17:50 Giardia lamblia Ag Negative (NEGATIVE) 06/10/18 17:50 Tissue Pathology To follow 06/10/18 12:30 Blood Type A POSITIVE 06/09/18 07:30 Antibody Screen Positive 06/09/18 07:30 Antibody Identification Inconclusive 06/09/18 07:30 Crossmatch See Detail 06/09/18 07:30 - Plan (1) Anemia Status: Acute Qualifiers: Anemia type: unspecified type Qualified Code(s): D64.9 - Anemia, unspecified Plan: TRANSFUSE 2 UNITS PRBC, PEPCID IV, PROTONIX IV, EGD TODAY (2) Oral candidiasis Status: Acute Plan: DIFLUCAN 100MG PO BID, CONTINUE TO MONITOR (3) Depression Status: Acute Qualifiers: Depression Type: unspecified Qualified Code(s): F32.9 - Major depressive disorder, single episode, unspecified
== END 2018-06-13 11:20 | disposition home or self-care (01) | DRG 811 ==
LOC: ER 15:53 → MED/SURG 15:53
PROVIDERS: ADMIT Internal Medicine; ATTEND Internal Medicine
DX: B37.81 Candidal esophagitis; F32.89 Other specified depressive episodes; F41.8 Other specified anxiety disorders; E78.2 Mixed hyperlipidemia; K44.9 Diaphragmatic hernia without obstruction or gangrene; D64.89 Other specified anemias; I10 Essential (primary) hypertension; R10.13 Epigastric pain; K92.1 Melena; K25.0 Acute gastric ulcer with hemorrhage
CPT/HCPCS: 36415; 71010; 71045; 74177; 80053; 80307; 80320; 81001; 82270; 82607; 82728; 82746; 83540; 83630; 84466; 85014; 85018; 85025; 86850; 86880; 86885; 86900; 86901; 86922; 86970; 87045; 87086; 87328; 87329; 87427; 87449; 87493; 87899; 93005; 94640; 96365; 99284; A4216; A4217; A4222; C9113; P9016; S0028; G0378; G0434; G6038; G6039; G6040; J1200; J2704; J3490; J7030; J7040; J7050; J7120